=== PATIENT | male | born 1950 | race Asian ===

== ENCOUNTER 2021-04-07 11:34 | Inpatient (IN) | payer OTHER ==
[2021-04-07 12:44] LABS: BASO % 0.2 % (0-2.0); EOS % 2.8 % (0-4.5); HEMATOCRIT 34.1 % (35.4-49); HEMOGLOBIN 11.6 GM/dL (11.7-16.9); LYMPH % 20.2 % (8-40); MCH 31.7 pg (25.7-33.7); MCHC 34.1 g/dl (32.0-35.9); MEAN PLT VOLUME 10.6 fl (7.5-11.1); MONO % 8.3 % (3.8-10.2); NEUT % 68.5 % (42.8-82.8); PLATELET COUNT 179 10^3/uL (134-434); RBC 3.67 M/mm3 (4.00-5.60); RDW 14.4 % (11.9-15.9); WHITE BLOOD COUNT 8.1 K/mm3 (4.0-10.0)
[2021-04-07 12:54] LABS: CHLORIDE 98 mmol/L (98-107); SODIUM 136 mmol/L (136-145)
[2021-04-07 12:56] LABS: CALCIUM 8.5 mg/dL (8.5-10.1)
[2021-04-07 12:57] LABS: ALBUMIN 3.6 g/dl (3.4-5.0); ANION GAP 11 MMOL/L (8-16); BLOOD UREA NITROGEN 63.7 mg/dL (7-18); CO2 27 mmol/L (21-32); MAGNESIUM 2.1 mg/dL (1.8-2.4)
[2021-04-07 13:00] LABS: CREATININE 3.8 mg/dL (0.55-1.3); SGOT/AST 32 U/L (15-37); SGPT/ALT 45 U/L (13-61)
[2021-04-07 13:02] LABS: BILIRUBIN,TOTAL 0.7 mg/dL (0.2-1); TOT PROT 8.2 g/dl (6.4-8.2)
[2021-04-07 13:03] LABS: ALK PHOS 135 U/L (45-117)
[2021-04-07 13:27] LABS: GLUCOSE,RANDOM 423 mg/dL (74-106)
[2021-04-07] MEDS ORDERED: INSULIN REGULAR HUMAN 100 UNITS/ML *VIAL SQ ONE ×2 (13:31→16:04)
[2021-04-07] MEDS ORDERED: ALBUTEROL SO4 2.5/IPRATROPIUM 0.5 INH SOL 3 ML VIAL.NEB. NEB ONE ×2 (13:49→14:27)
[2021-04-07] MEDS ORDERED: MAGNESIUM SULF 50% (8.12 MEQ/2 ML-1 GM VIAL) IVPB ONE (13:50)
[2021-04-07] MEDS ORDERED: ALBUTEROL SO4 2.5/IPRATROPIUM 0.5 INH SOL 3 ML VIAL.NEB. NEB SCH (14:00)
[2021-04-07 14:08] LABS: N-TERMINAL BNP 24676.2 pg/ml (5-125)
[2021-04-07] MEDS ORDERED: MAGNESIUM SULFATE IN WATER 2 GM/50 ML IVPB IVPB ONE (14:27)
[2021-04-07] MEDS ORDERED: predniSONE 20 MG TABLET (UD) PO ONE (15:12)
[2021-04-07] MEDS ORDERED: ALBUTEROL SO4 0.5 % INH SOLN 2.5 MG/0.5 ML VIAL.NEB. NEB PRN (15:45)
[2021-04-07] MEDS ORDERED: predniSONE 20 MG TABLET (UD) ONE (15:50)
[2021-04-07] MEDS ORDERED: FUROSEMIDE 40 MG/4 ML INJECTABLE VIAL IVPUSH ONE (15:50)
[2021-04-07] MEDS ORDERED: FUROSEMIDE 40 MG/4 ML INJECTABLE VIAL ONE (16:16)
[2021-04-07] MEDS: DOXYCYCLINE HYCLATE 100 MG CAPSULE PO SCH (18:40)
[2021-04-07] MEDS: ALBUTEROL SO4 2.5/IPRATROPIUM 0.5 INH SOL 3 ML VIAL.NEB. NEB SCH (21:37)
[2021-04-07] MEDS: HEPARIN NA (PORCINE) 5,000 UNITS/ML 1ML VIAL SQ SCH (22:40)
[2021-04-08] MEDS: ALBUTEROL SO4 2.5/IPRATROPIUM 0.5 INH SOL 3 ML VIAL.NEB. NEB SCH ×4 (07:45→20:05)
[2021-04-08 09:28] LABS: BASO % 0.2 % (0-2.0); HEMATOCRIT 34.1 % (35.4-49); HEMOGLOBIN 11.6 GM/dL (11.7-16.9); LYMPH % 11.6 % (8-40); MCH 31.6 pg (25.7-33.7); MCHC 34.1 g/dl (32.0-35.9); MEAN CELL VOLUME 92.8 fl (80-96); MEAN PLT VOLUME 10.2 fl (7.5-11.1); MONO % 4.9 % (3.8-10.2); NEUT % 83.3 % (42.8-82.8); PLATELET COUNT 180 10^3/uL (134-434); RBC 3.67 M/mm3 (4.00-5.60); RDW 14.3 % (11.9-15.9); WHITE BLOOD COUNT 10.3 K/mm3 (4.0-10.0)
[2021-04-08] MEDS: DOXYCYCLINE HYCLATE 100 MG CAPSULE PO SCH ×2 (09:45→17:39)
[2021-04-08] MEDS: HEPARIN NA (PORCINE) 5,000 UNITS/ML 1ML VIAL SQ SCH ×2 (09:46→21:09)
[2021-04-08] MEDS: predniSONE 20 MG TABLET (UD) PO SCH (09:46)
[2021-04-08 10:14] LABS: BLOOD UREA NITROGEN 77.5 mg/dL (7-18); CALCIUM 9.1 mg/dL (8.5-10.1)
[2021-04-08 10:16] LABS: MAGNESIUM 3.1 mg/dL (1.8-2.4)
[2021-04-08 10:17] LABS: PHOSPHOROUS 5.4 mg/dL (2.5-4.9)
[2021-04-08 10:18] LABS: CREATININE 3.9 mg/dL (0.55-1.3)
[2021-04-08 11:33] VITALS: BMI 21.3
[2021-04-08] MEDS ORDERED: INSULIN (NOVOLOG) ASPART 100 UNITS/ML 10ML VIAL SQ ONE (15:30)
[2021-04-08] MEDS ORDERED: INSULIN (LEVEMIR) 100 UNITS/ML UNITS SQ ONE (19:00)
[2021-04-08] MEDS: TAMSULOSIN HCL 0.4 MG CAP PO SCH (19:43)
[2021-04-08] MEDS: RANOLAZINE E.R. 500 MG TABLET (FP) PO SCH (21:09)
[2021-04-08] MEDS: CARVEDILOL 25 MG TABLET (FP) PO SCH (21:09)
[2021-04-08] MEDS: BUDESONIDE/FORMETEROL FUMARATE 160/4.5 mcg INHALER IH SCH (21:09)
[2021-04-08] MEDS ORDERED: PATIENT'S OWN MEDICATION (NON-FORMULARY) (Tiotropium Bromide [Spiriva] 18 MCG Cap.W.Dev) IH SCH (22:00)
[2021-04-08] MEDS ORDERED: INSULIN (LEVEMIR) 100 UNITS/ML UNITS SQ SCH (22:00)
[2021-04-08] MEDS: INSULIN SLIDING SCALE (NOVOLOG) 1 VIAL SQ SCH (22:22)
[2021-04-08] MEDS: SACUBITRIL/VALSARTAN 24 MG-26 MG TABLET PO SCH (22:24)
[2021-04-09] MEDS: INSULIN SLIDING SCALE (NOVOLOG) 1 VIAL SQ SCH ×4 (06:25→22:45)
[2021-04-09] MEDS: ALBUTEROL SO4 2.5/IPRATROPIUM 0.5 INH SOL 3 ML VIAL.NEB. NEB SCH ×4 (07:30→20:16)
[2021-04-09] MEDS ORDERED: INSULIN (LEVEMIR) 100 UNITS/ML UNITS SQ SCH ×2 (07:30→17:55)
[2021-04-09] MEDS: TAMSULOSIN HCL 0.4 MG CAP PO SCH (08:45)
[2021-04-09 09:21] LABS: BASO % 0.2 % (0-2.0); EOS % 0.1 % (0-4.5); HEMATOCRIT 31.2 % (35.4-49); HEMOGLOBIN 10.6 GM/dL (11.7-16.9); LYMPH % 13.5 % (8-40); MCH 31.6 pg (25.7-33.7); MCHC 34.1 g/dl (32.0-35.9); MEAN CELL VOLUME 92.8 fl (80-96); MEAN PLT VOLUME 10.2 fl (7.5-11.1); MONO % 6.6 % (3.8-10.2); NEUT % 79.6 % (42.8-82.8); PLATELET COUNT 163 10^3/uL (134-434); RBC 3.36 M/mm3 (4.00-5.60); RDW 14.3 % (11.9-15.9); WHITE BLOOD COUNT 10.2 K/mm3 (4.0-10.0)
[2021-04-09 09:50] LABS: ALBUMIN 3.3 g/dl (3.4-5.0); BLOOD UREA NITROGEN 98.7 mg/dL (7-18); CALCIUM 8.7 mg/dL (8.5-10.1)
[2021-04-09 09:51] LABS: MAGNESIUM 2.8 mg/dL (1.8-2.4)
[2021-04-09 09:53] LABS: PHOSPHOROUS 4.8 mg/dL (2.5-4.9)
[2021-04-09 09:55] LABS: BILIRUBIN,TOTAL 0.5 mg/dL (0.2-1); TOT PROT 7.3 g/dl (6.4-8.2)
[2021-04-09] MEDS ORDERED: SACUBITRIL/VALSARTAN 24 MG-26 MG TABLET PO SCH (10:00)
[2021-04-09] MEDS: PANTOPRAZOLE 20 MG TABLET PO SCH (10:33)
[2021-04-09] MEDS: RANOLAZINE E.R. 500 MG TABLET (FP) PO SCH ×2 (10:33→22:44)
[2021-04-09] MEDS: ISOSORBIDE MONONITRATE 60 MG TAB.SR.24H (FP) PO SCH (10:33)
[2021-04-09] MEDS: DOXYCYCLINE HYCLATE 100 MG CAPSULE PO SCH (10:33)
[2021-04-09] MEDS: predniSONE 20 MG TABLET (UD) PO SCH (10:33)
[2021-04-09] MEDS: CLOPIDOGREL BISULFATE 75 MG TABLET (FP) PO SCH (10:34)
[2021-04-09] MEDS: SACUBITRIL/VALSARTAN 24 MG-26 MG TABLET PO SCH ×2 (10:34→22:45)
[2021-04-09] MEDS: HEPARIN NA (PORCINE) 5,000 UNITS/ML 1ML VIAL SQ SCH ×2 (10:34→22:45)
[2021-04-09] MEDS: TIOTROPIUM BROMIDE 2.5 MCG (SPIRIVA) RESPIMAT INHALER IH SCH (10:35)
[2021-04-09] MEDS: BUDESONIDE/FORMETEROL FUMARATE 160/4.5 mcg INHALER IH SCH ×2 (10:35→22:45)
[2021-04-09] MEDS: CARVEDILOL 25 MG TABLET (FP) PO SCH ×2 (10:36→22:45)
[2021-04-09] MEDS ORDERED: SODIUM CHLORIDE 250 ML IV PRN (13:48)
[2021-04-09] MEDS ORDERED: EPOETIN ALFA-EPBX 2,000 UNIT/ML VIAL IVPUSH ONE (14:00)
[2021-04-09] MEDS: methylPREDNISolone NA SUCC 40 MG/1 ML VIAL IVPUSH SCH ×2 (17:20→17:49)
[2021-04-09] MEDS ORDERED: PT OWN MED DRAWER 7, Y5N ONE (22:20)
[2021-04-09] MEDS: ATORVASTATIN CA 80 MG TABLET (FP) PO SCH (22:45)
[2021-04-10] MEDS: methylPREDNISolone NA SUCC 40 MG/1 ML VIAL IVPUSH SCH ×3 (01:23→17:15)
[2021-04-10] MEDS: INSULIN SLIDING SCALE (NOVOLOG) 1 VIAL SQ SCH ×4 (06:37→22:37)
[2021-04-10] MEDS ORDERED: PT OWN MED DRAWER 7, Y5N ONE (08:50)
[2021-04-10] MEDS: ALBUTEROL SO4 2.5/IPRATROPIUM 0.5 INH SOL 3 ML VIAL.NEB. NEB SCH ×3 (08:50→15:20)
[2021-04-10 09:07] LABS: HEMOGLOBIN 10.9 GM/dL (11.7-16.9); MCH 31.5 pg (25.7-33.7); MEAN CELL VOLUME 92.8 fl (80-96); MEAN PLT VOLUME 10.1 fl (7.5-11.1); PLATELET COUNT 152 10^3/uL (134-434); RBC 3.45 M/mm3 (4.00-5.60); RDW 14.5 % (11.9-15.9); WHITE BLOOD COUNT 7.8 K/mm3 (4.0-10.0)
[2021-04-10] MEDS: TAMSULOSIN HCL 0.4 MG CAP PO SCH (09:30)
[2021-04-10] MEDS: SACUBITRIL/VALSARTAN 24 MG-26 MG TABLET PO SCH ×3 (09:30→22:44)
[2021-04-10] MEDS: PANTOPRAZOLE 20 MG TABLET PO SCH (09:31)
[2021-04-10] MEDS: CLOPIDOGREL BISULFATE 75 MG TABLET (FP) PO SCH (09:31)
[2021-04-10] MEDS: RANOLAZINE E.R. 500 MG TABLET (FP) PO SCH ×2 (09:31→22:37)
[2021-04-10] MEDS: HEPARIN NA (PORCINE) 5,000 UNITS/ML 1ML VIAL SQ SCH ×2 (09:39→22:37)
[2021-04-10] MEDS: TIOTROPIUM BROMIDE 2.5 MCG (SPIRIVA) RESPIMAT INHALER IH SCH (09:40)
[2021-04-10] MEDS: BUDESONIDE/FORMETEROL FUMARATE 160/4.5 mcg INHALER IH SCH ×2 (09:41→22:40)
[2021-04-10 11:19] LABS: ALBUMIN 2.9 g/dl (3.4-5.0); BILIRUBIN,TOTAL 0.5 mg/dL (0.2-1); BLOOD UREA NITROGEN 47.7 mg/dL (7-18); CALCIUM 7.9 mg/dL (8.5-10.1); CREATININE 2.7 mg/dL (0.55-1.3); PHOSPHOROUS 3.6 mg/dL (2.5-4.9); TOT PROT 6.5 g/dl (6.4-8.2)
[2021-04-10] MEDS: ISOSORBIDE MONONITRATE 60 MG TAB.SR.24H (FP) PO SCH (11:36)
[2021-04-10] MEDS: CARVEDILOL 25 MG TABLET (FP) PO SCH (11:36)
[2021-04-10] MEDS ORDERED: CARVEDILOL 25 MG TABLET (FP) PO SCH (15:10)
[2021-04-10] MEDS ORDERED: ISOSORBIDE MONONITRATE 60 MG TAB.SR.24H (FP) PO SCH (17:27)
[2021-04-10] MEDS: ATORVASTATIN CA 80 MG TABLET (FP) PO SCH (22:37)
[2021-04-11] MEDS: methylPREDNISolone NA SUCC 40 MG/1 ML VIAL IVPUSH SCH ×3 (01:50→18:00)
[2021-04-11] MEDS: INSULIN SLIDING SCALE (NOVOLOG) 1 VIAL SQ SCH ×3 (06:53→18:01)
[2021-04-11] MEDS ORDERED: INSULIN (LEVEMIR) 100 UNITS/ML UNITS SQ SCH (07:00)
[2021-04-11] MEDS: ALBUTEROL SO4 2.5/IPRATROPIUM 0.5 INH SOL 3 ML VIAL.NEB. NEB SCH ×3 (07:35→15:40)
[2021-04-11] MEDS: TAMSULOSIN HCL 0.4 MG CAP PO SCH (09:15)
[2021-04-11 09:53] LABS: BASO % 0.4 % (0-2.0); HEMOGLOBIN 10.8 GM/dL (11.7-16.9); LYMPH % 5.6 % (8-40); MCH 31.3 pg (25.7-33.7); MCHC 33.7 g/dl (32.0-35.9); MEAN PLT VOLUME 9.9 fl (7.5-11.1); MONO % 3.8 % (3.8-10.2); NEUT % 90.2 % (42.8-82.8); PLATELET COUNT 155 10^3/uL (134-434); RBC 3.44 M/mm3 (4.00-5.60); RDW 14.8 % (11.9-15.9); WHITE BLOOD COUNT 10.5 K/mm3 (4.0-10.0)
[2021-04-11] MEDS ORDERED: CARVEDILOL 6.25 MG TABLET (FP) PO SCH (09:55)
[2021-04-11 10:24] LABS: ALBUMIN 3.1 g/dl (3.4-5.0); CALCIUM 8.4 mg/dL (8.5-10.1); MAGNESIUM 2.4 mg/dL (1.8-2.4)
[2021-04-11 10:27] LABS: CREATININE 3.7 mg/dL (0.55-1.3)
[2021-04-11 10:28] LABS: BILIRUBIN,TOTAL 0.5 mg/dL (0.2-1)
[2021-04-11 10:29] LABS: TOT PROT 6.8 g/dl (6.4-8.2)
[2021-04-11 10:30] LABS: PHOSPHOROUS 4.4 mg/dL (2.5-4.9)
[2021-04-11] MEDS: SACUBITRIL/VALSARTAN 24 MG-26 MG TABLET PO SCH (10:30)
[2021-04-11 10:38] LABS: BLOOD UREA NITROGEN 77.4 mg/dL (7-18)
[2021-04-11] MEDS ORDERED: INSULIN SLIDING SCALE (NOVOLOG) 1 VIAL SQ ONE (10:39)
[2021-04-11] MEDS: RANOLAZINE E.R. 500 MG TABLET (FP) PO SCH (10:42)
[2021-04-11] MEDS: HEPARIN NA (PORCINE) 5,000 UNITS/ML 1ML VIAL SQ SCH (10:42)
[2021-04-11] MEDS: PANTOPRAZOLE 20 MG TABLET PO SCH (10:42)
[2021-04-11] MEDS: CLOPIDOGREL BISULFATE 75 MG TABLET (FP) PO SCH (10:43)
[2021-04-11] MEDS: TIOTROPIUM BROMIDE 2.5 MCG (SPIRIVA) RESPIMAT INHALER IH SCH (10:47)
[2021-04-11] MEDS: BUDESONIDE/FORMETEROL FUMARATE 160/4.5 mcg INHALER IH SCH (10:47)
[2021-04-11] MEDS ORDERED: EPOETIN ALFA-EPBX 2,000 UNIT/ML VIAL IVPUSH ONE (16:00)
[2021-04-11 17:59] VITALS: BP 135/59; PULSE 76; TEMP 97.8
== END 2021-04-11 19:06 | disposition home or self-care (01) | DRG 190 ==
LOC: JER 11:34 → INTOOBSV 15:11 → JERBED 15:11 → OBSVTOIN 15:11 → J5S 15:52
PROVIDERS: ADMIT Internal Medicine; ATTEND Internal Medicine
PROC: 5A1D70Z Performance of Urinary Filtration, Intermittent, Less than 6 Hours Per Day (ICD-10-PCS; principal; 2021-04-11)
DX: J44.1 Chronic obstructive pulmonary disease with (acute) exacerbation (principal); N18.6 End stage renal disease; J45.901 Unspecified asthma with (acute) exacerbation; I13.2 Hypertensive heart and chronic kidney disease with heart failure and with stage 5 chronic kidney disease, or end stage renal disease; E11.65 Type 2 diabetes mellitus with hyperglycemia; E87.70 Fluid overload, unspecified; E78.5 Hyperlipidemia, unspecified; I50.9 Heart failure, unspecified; I25.10 Atherosclerotic heart disease of native coronary artery without angina pectoris; Z99.2 Dependence on renal dialysis
CPT/HCPCS: 36415; 71045-TC-FY; 80048; 80053; 82010; 82550; 82553; 82962; 83036; 83735; 83880; 84100; 84484; 85025; 85027; 86803; 87340; 87804; 93005; 93010; 94640; 94660; 94761; 99285-25; C9803; J1644; Q5106; U0003; U0005

== ENCOUNTER 2021-04-15 22:44 | Emergency (ER) | payer OTHER ==
[2021-04-15 22:57] VITALS: TEMP 97.6; BMI 25.7
[2021-04-16] MEDS ORDERED: DEXAMETHASONE LIQUID 0.5 MG/5 ML PO ONE (00:56)
[2021-04-16] MEDS ORDERED: ALBUTEROL SO4 2.5/IPRATROPIUM 0.5 INH SOL 3 ML VIAL.NEB. NEB ONE ×3 (00:56→01:44)
[2021-04-16] MEDS ORDERED: DEXAMETHASONE SOD PHOSPHATE 10 MG/1 ML VIAL ONE (01:44)
[2021-04-16] MEDS ORDERED: AZITHROMYCIN 250 MG TABLET PO ONE (02:30)
[2021-04-16 03:00] VITALS: BP 128/74; PULSE 80
== END 2021-04-16 03:01 | disposition home or self-care (01) ==
LOC: JER 22:44
PROC: 3E0F7GC Introduction of Other Therapeutic Substance into Respiratory Tract, Via Natural or Artificial Opening (ICD-10-PCS; principal; 2021-04-15)
DX: J44.1 Chronic obstructive pulmonary disease with (acute) exacerbation (principal)
CPT/HCPCS: 94640; 99283-25

== ENCOUNTER 2021-06-11 08:32 | Inpatient (IN) | payer OTHER ==
[2021-06-11 08:39] VITALS: BMI 21.9
[2021-06-11 10:49] LABS: BASO % 0.4 % (0-2.0); EOS % 0.2 % (0-4.5); HEMATOCRIT 35.7 % (35.4-49); LYMPH % 9.7 % (8-40); MCH 32.4 pg (25.7-33.7); MCHC 33.6 g/dl (32.0-35.9); MEAN CELL VOLUME 96.5 fl (80-96); MEAN PLT VOLUME 9.5 fl (7.5-11.1); MONO % 8.1 % (3.8-10.2); NEUT % 81.6 % (42.8-82.8); PLATELET COUNT 173 10^3/uL (134-434); RDW 17.5 % (11.9-15.9); WHITE BLOOD COUNT 10.1 K/mm3 (4.0-10.0)
[2021-06-11 10:58] LABS: MAGNESIUM 2.2 mg/dL (1.8-2.4)
[2021-06-11] MEDS: ALBUTEROL SO4 2.5/IPRATROPIUM 0.5 INH SOL 3 ML VIAL.NEB. NEB SCH ×6 (11:00→21:42)
[2021-06-11 11:02] LABS: ALBUMIN 3.1 g/dl (3.4-5.0); CALCIUM 9.3 mg/dL (8.5-10.1); PHOSPHOROUS 4.6 mg/dL (2.5-4.9)
[2021-06-11 11:05] LABS: CREATININE 5.7 mg/dL (0.55-1.3)
[2021-06-11 11:07] LABS: BILIRUBIN,TOTAL 0.8 mg/dL (0.2-1); TOT PROT 7.4 g/dl (6.4-8.2)
[2021-06-11 11:20] LABS: N-TERMINAL BNP 64607.8 pg/ml (5-125)
[2021-06-11 12:46] LABS: EPI CELLS 2 /uL (0-25.1); HYALINE CASTS 0 /uL (0-3.1); PH,URINE 6.5 (5.0-8.0); URINE APPEARANCE CLEAR; URINE BACTERIA 60 /uL (0-1359); URINE BILIRUBIN NEGATIVE (NEGATIVE); URINE COLOR YELLOW; URINE GLUCOSE (UA) 3+ (NEGATIVE); URINE KETONE NEGATIVE (NEGATIVE); URINE LEUK ESTERASE NEGATIVE (NEGATIVE); URINE NITRITE NEGATIVE (NEGATIVE); URINE PROTEIN 2+ (NEGATIVE); URINE RBC 6 /uL (0-23.9); URINE WBC 2 /uL (0-25.8)
[2021-06-11] MEDS ORDERED: TIOTROPIUM BROMIDE 2.5 MCG (SPIRIVA) RESPIMAT INHALER IH SCH (14:00)
[2021-06-11] MEDS ORDERED: ALBUTEROL SO4 2.5/IPRATROPIUM 0.5 INH SOL 3 ML VIAL.NEB. NEB ONE ×2 (14:43→21:38)
[2021-06-11] MEDS ORDERED: ALBUTEROL SO4 2.5/IPRATROPIUM 0.5 INH SOL 3 ML VIAL.NEB. NEB PRN (15:35)
[2021-06-11] MEDS ORDERED: DOXYCYCLINE INJECTION 100 MG in DEXTROSE 5%-WATER 100 ML IVPB SCH (15:45)
[2021-06-11] MEDS ORDERED: CEFTRIAXONE 1 GM in DEXTROSE 5%-WATER - 50 ML IVPB SCH (15:45)
[2021-06-11] MEDS ORDERED: CEFTRIAXONE 1 GM/50 ML BAG ONE (15:47)
[2021-06-11] MEDS ORDERED: DOXYCYCLINE HYCLATE 100 MG VIAL ONE ×2 (16:04→22:53)
[2021-06-11] MEDS: INSULIN SLIDING SCALE (NOVOLOG) 1 VIAL SQ SCH ×2 (16:53→23:10)
[2021-06-11] MEDS ORDERED: DEXAMETHASONE SOD PHOSPHATE 10 MG/1 ML VIAL ONE (21:38)
[2021-06-11] MEDS: DEXAMETHASONE SOD PHOSPHATE 10 MG/1 ML VIAL IVPUSH SCH (21:42)
[2021-06-11] MEDS ORDERED: HEPARIN NA (PORCINE) 5,000 UNITS/ML 1ML VIAL SQ SCH (22:00)
[2021-06-11] MEDS ORDERED: DEXTROSE 5%-WATER 100 ML IVPB ONE (22:53)
[2021-06-11] MEDS: CARVEDILOL 6.25 MG TABLET (FP) PO SCH (23:09)
[2021-06-11] MEDS: HEPARIN NA (PORCINE) 5,000 UNITS/ML 1ML VIAL SQ SCH (23:09)
[2021-06-11] MEDS: RANOLAZINE E.R. 500 MG TABLET (FP) PO SCH (23:09)
[2021-06-11] MEDS: SACUBITRIL/VALSARTAN 24 MG-26 MG TABLET PO SCH (23:09)
[2021-06-11] MEDS: INSULIN (LEVEMIR) 100 UNITS/ML UNITS SQ SCH (23:10)
[2021-06-11] MEDS: ZINC SULFATE 220 MG CAPSULE (FP) PO SCH (23:11)
[2021-06-11] MEDS: DOXYCYCLINE INJECTION 100 MG in DEXTROSE 5%-WATER 100 ML IVPB SCH (23:11)
[2021-06-11] MEDS: BUDESONIDE/FORMETEROL FUMARATE 160/4.5 mcg INHALER IH SCH (23:28)
[2021-06-12] MEDS: HEPARIN NA (PORCINE) 5,000 UNITS/ML 1ML VIAL SQ SCH ×3 (05:39→21:01)
[2021-06-12] MEDS: INSULIN SLIDING SCALE (NOVOLOG) 1 VIAL SQ SCH ×4 (06:27→21:02)
[2021-06-12 07:45] LABS: BASO % 0.2 % (0-2.0); HEMATOCRIT 33.5 % (35.4-49); HEMOGLOBIN 11.3 GM/dL (11.7-16.9); LYMPH % 10.4 % (8-40); MCH 32.2 pg (25.7-33.7); MCHC 33.7 g/dl (32.0-35.9); MEAN CELL VOLUME 95.6 fl (80-96); MEAN PLT VOLUME 9.5 fl (7.5-11.1); MONO % 5.6 % (3.8-10.2); NEUT % 83.8 % (42.8-82.8); PLATELET COUNT 159 10^3/uL (134-434); RDW 17.3 % (11.9-15.9); WHITE BLOOD COUNT 6.1 K/mm3 (4.0-10.0)
[2021-06-12 08:03] LABS: CALCIUM 8.5 mg/dL (8.5-10.1)
[2021-06-12 08:04] LABS: ALBUMIN 2.7 g/dl (3.4-5.0)
[2021-06-12 08:06] LABS: BILIRUBIN,TOTAL 0.7 mg/dL (0.2-1); TOT PROT 6.7 g/dl (6.4-8.2)
[2021-06-12 08:07] LABS: CREATININE 3.5 mg/dL (0.55-1.3)
[2021-06-12] MEDS ORDERED: DOXYCYCLINE HYCLATE 100 MG VIAL ONE ×3 (09:07→20:36)
[2021-06-12] MEDS ORDERED: DEXTROSE 5%-WATER 100 ML IVPB ONE ×3 (09:08→20:36)
[2021-06-12] MEDS ORDERED: cefTRIAXone SODIUM 1 GM VIAL ONE (09:10)
[2021-06-12] MEDS ORDERED: PT OWN MED DRAWER 7, Y5N ONE (09:10)
[2021-06-12] MEDS ORDERED: DEXTROSE 5%-WATER - 50 ML IVPB ONE (09:11)
[2021-06-12] MEDS: ZINC SULFATE 220 MG CAPSULE (FP) PO SCH ×2 (09:23→21:01)
[2021-06-12] MEDS: TAMSULOSIN HCL 0.4 MG CAP PO SCH (09:23)
[2021-06-12] MEDS: ISOSORBIDE MONONITRATE 60 MG TAB.SR.24H (FP) PO SCH (09:23)
[2021-06-12] MEDS: PANTOPRAZOLE 20 MG TABLET PO SCH (09:23)
[2021-06-12] MEDS: RANOLAZINE E.R. 500 MG TABLET (FP) PO SCH ×2 (09:23→21:01)
[2021-06-12] MEDS: CARVEDILOL 6.25 MG TABLET (FP) PO SCH ×2 (09:23→21:01)
[2021-06-12] MEDS: CHOLECALCIFEROL (VIT D3) 1,000 UNIT (25 MCG) TABLET PO SCH (09:23)
[2021-06-12] MEDS: SACUBITRIL/VALSARTAN 24 MG-26 MG TABLET PO SCH ×2 (09:23→21:01)
[2021-06-12] MEDS: ASCORBIC ACID 500 MG TABLET (FP) PO SCH (09:24)
[2021-06-12] MEDS: DEXAMETHASONE SOD PHOSPHATE 10 MG/1 ML VIAL IVPUSH SCH (09:24)
[2021-06-12] MEDS: CEFTRIAXONE 1 GM in DEXTROSE 5%-WATER - 50 ML IVPB SCH (09:25)
[2021-06-12] MEDS: CLOPIDOGREL BISULFATE 75 MG TABLET (FP) PO SCH (09:26)
[2021-06-12] MEDS: DOXYCYCLINE INJECTION 100 MG in DEXTROSE 5%-WATER 100 ML IVPB SCH ×2 (09:33→21:01)
[2021-06-12] MEDS: BUDESONIDE/FORMETEROL FUMARATE 160/4.5 mcg INHALER IH SCH ×2 (09:55→21:01)
[2021-06-12] MEDS ORDERED: NICOTINE 14 MG/24 HOURS TOPICAL PATCH TD SCH (10:00)
[2021-06-12] MEDS ORDERED: SACUBITRIL/VALSARTAN 24 MG-26 MG TABLET PO SCH (10:00)
[2021-06-12] MEDS ORDERED: SODIUM CHLORIDE 250 ML IV PRN (10:04)
[2021-06-12] MEDS: ALBUTEROL SO4 2.5/IPRATROPIUM 0.5 INH SOL 3 ML VIAL.NEB. NEB SCH (12:21)
[2021-06-12] MEDS: ATORVASTATIN CA 80 MG TABLET (FP) PO SCH (21:01)
[2021-06-12] MEDS: INSULIN (LEVEMIR) 100 UNITS/ML UNITS SQ SCH (21:02)
[2021-06-13] MEDS: HEPARIN NA (PORCINE) 5,000 UNITS/ML 1ML VIAL SQ SCH ×3 (06:29→21:25)
[2021-06-13] MEDS: INSULIN SLIDING SCALE (NOVOLOG) 1 VIAL SQ SCH ×4 (06:29→21:26)
[2021-06-13 06:41] LABS: BASO % 0.3 % (0-2.0); EOS % 0.1 % (0-4.5); HEMATOCRIT 31.3 % (35.4-49); HEMOGLOBIN 10.6 GM/dL (11.7-16.9); LYMPH % 13.2 % (8-40); MCH 32.4 pg (25.7-33.7); MEAN CELL VOLUME 95.3 fl (80-96); MEAN PLT VOLUME 9.3 fl (7.5-11.1); MONO % 7.9 % (3.8-10.2); NEUT % 78.5 % (42.8-82.8); PLATELET COUNT 160 10^3/uL (134-434); RBC 3.28 M/mm3 (4.00-5.60); RDW 17.4 % (11.9-15.9); WHITE BLOOD COUNT 7.7 K/mm3 (4.0-10.0)
[2021-06-13] MEDS ORDERED: POTASSIUM CHLORIDE TABS 20 MEQ TABLET.ER (FP) PO ONE (07:01)
[2021-06-13 07:03] LABS: CALCIUM 7.9 mg/dL (8.5-10.1)
[2021-06-13 07:04] LABS: ALBUMIN 2.2 g/dl (3.4-5.0); BLOOD UREA NITROGEN 56.9 mg/dL (7-18); MAGNESIUM 1.9 mg/dL (1.8-2.4)
[2021-06-13 07:07] LABS: CREATININE 4.2 mg/dL (0.55-1.3); PHOSPHOROUS 4.1 mg/dL (2.5-4.9)
[2021-06-13 07:08] LABS: BILIRUBIN,TOTAL 0.5 mg/dL (0.2-1); TOT PROT 5.7 g/dl (6.4-8.2)
[2021-06-13] MEDS ORDERED: DOXYCYCLINE HYCLATE 100 MG VIAL ONE (09:24)
[2021-06-13] MEDS ORDERED: DEXTROSE 5%-WATER 100 ML IVPB ONE (09:24)
[2021-06-13] MEDS ORDERED: DEXTROSE 5%-WATER - 50 ML IVPB ONE (09:26)
[2021-06-13] MEDS ORDERED: cefTRIAXone SODIUM 1 GM VIAL ONE (09:26)
[2021-06-13] MEDS: BUDESONIDE/FORMETEROL FUMARATE 160/4.5 mcg INHALER IH SCH ×2 (10:33→21:27)
[2021-06-13] MEDS: ZINC SULFATE 220 MG CAPSULE (FP) PO SCH ×2 (10:55→21:24)
[2021-06-13] MEDS: ISOSORBIDE MONONITRATE 60 MG TAB.SR.24H (FP) PO SCH (10:55)
[2021-06-13] MEDS: TAMSULOSIN HCL 0.4 MG CAP PO SCH (10:55)
[2021-06-13] MEDS: CHOLECALCIFEROL (VIT D3) 1,000 UNIT (25 MCG) TABLET PO SCH (10:56)
[2021-06-13] MEDS: CEFTRIAXONE 1 GM in DEXTROSE 5%-WATER - 50 ML IVPB SCH (10:56)
[2021-06-13] MEDS: RANOLAZINE E.R. 500 MG TABLET (FP) PO SCH ×2 (10:56→21:24)
[2021-06-13] MEDS: PANTOPRAZOLE 20 MG TABLET PO SCH (10:56)
[2021-06-13] MEDS: CARVEDILOL 6.25 MG TABLET (FP) PO SCH ×2 (10:56→21:24)
[2021-06-13] MEDS: DEXAMETHASONE SOD PHOSPHATE 10 MG/1 ML VIAL IVPUSH SCH (10:56)
[2021-06-13] MEDS: CLOPIDOGREL BISULFATE 75 MG TABLET (FP) PO SCH (10:56)
[2021-06-13] MEDS: ASCORBIC ACID 500 MG TABLET (FP) PO SCH (10:56)
[2021-06-13] MEDS: DOXYCYCLINE INJECTION 100 MG in DEXTROSE 5%-WATER 100 ML IVPB SCH (10:57)
[2021-06-13] MEDS: SACUBITRIL/VALSARTAN 24 MG-26 MG TABLET PO SCH ×2 (11:27→21:24)
[2021-06-13] MEDS: ATORVASTATIN CA 80 MG TABLET (FP) PO SCH (21:25)
[2021-06-13] MEDS: INSULIN (LEVEMIR) 100 UNITS/ML UNITS SQ SCH (21:25)
[2021-06-14] MEDS: HEPARIN NA (PORCINE) 5,000 UNITS/ML 1ML VIAL SQ SCH ×2 (06:05→14:50)
[2021-06-14] MEDS: INSULIN SLIDING SCALE (NOVOLOG) 1 VIAL SQ SCH ×2 (06:16→11:54)
[2021-06-14 08:02] LABS: HEMATOCRIT 34.2 % (35.4-49); HEMOGLOBIN 11.6 GM/dL (11.7-16.9); MCH 32.5 pg (25.7-33.7); MCHC 33.8 g/dl (32.0-35.9); MEAN CELL VOLUME 96.2 fl (80-96); MEAN PLT VOLUME 9.6 fl (7.5-11.1); PLATELET COUNT 174 10^3/uL (134-434); RBC 3.56 M/mm3 (4.00-5.60); RDW 17.4 % (11.9-15.9); WHITE BLOOD COUNT 7.6 K/mm3 (4.0-10.0)
[2021-06-14 08:31] LABS: ALBUMIN 2.3 g/dl (3.4-5.0); BLOOD UREA NITROGEN 36.6 mg/dL (7-18); CALCIUM 8.2 mg/dL (8.5-10.1); MAGNESIUM 1.9 mg/dL (1.8-2.4)
[2021-06-14 08:34] LABS: CREATININE 3.2 mg/dL (0.55-1.3); PHOSPHOROUS 3.3 mg/dL (2.5-4.9)
[2021-06-14 08:36] LABS: BILIRUBIN,TOTAL 0.4 mg/dL (0.2-1); TOT PROT 5.8 g/dl (6.4-8.2)
[2021-06-14] MEDS ORDERED: cefTRIAXone SODIUM 1 GM VIAL ONE (09:45)
[2021-06-14] MEDS ORDERED: DEXTROSE 5%-WATER - 50 ML IVPB ONE (09:45)
[2021-06-14] MEDS: CEFTRIAXONE 1 GM in DEXTROSE 5%-WATER - 50 ML IVPB SCH (09:52)
[2021-06-14] MEDS: TAMSULOSIN HCL 0.4 MG CAP PO SCH (09:52)
[2021-06-14] MEDS: RANOLAZINE E.R. 500 MG TABLET (FP) PO SCH (09:52)
[2021-06-14] MEDS: CLOPIDOGREL BISULFATE 75 MG TABLET (FP) PO SCH (09:53)
[2021-06-14] MEDS: SACUBITRIL/VALSARTAN 24 MG-26 MG TABLET PO SCH (09:53)
[2021-06-14] MEDS: ISOSORBIDE MONONITRATE 60 MG TAB.SR.24H (FP) PO SCH (09:53)
[2021-06-14] MEDS: CHOLECALCIFEROL (VIT D3) 1,000 UNIT (25 MCG) TABLET PO SCH (09:53)
[2021-06-14] MEDS: PANTOPRAZOLE 20 MG TABLET PO SCH (09:53)
[2021-06-14] MEDS: ZINC SULFATE 220 MG CAPSULE (FP) PO SCH (09:53)
[2021-06-14] MEDS: ASCORBIC ACID 500 MG TABLET (FP) PO SCH (09:54)
[2021-06-14] MEDS: CARVEDILOL 6.25 MG TABLET (FP) PO SCH (09:58)
[2021-06-14] MEDS: BUDESONIDE/FORMETEROL FUMARATE 160/4.5 mcg INHALER IH SCH (10:12)
[2021-06-14 14:06] VITALS: BP 92/51; PULSE 67; TEMP 97.9
== END 2021-06-14 17:01 | disposition home or self-care (01) | DRG 177 ==
LOC: JER 08:32 → JERBED 12:06 → J4S 22:40
PROVIDERS: ADMIT Internal Medicine; ATTEND Internal Medicine
PROC: 5A1D70Z Performance of Urinary Filtration, Intermittent, Less than 6 Hours Per Day (ICD-10-PCS; principal; 2021-06-11)
PROC: 5A1D70Z Performance of Urinary Filtration, Intermittent, Less than 6 Hours Per Day (ICD-10-PCS; 2021-06-13)
DX: U07.1 COVID-19 (principal); J12.82 Pneumonia due to coronavirus disease 2019; N18.6 End stage renal disease; I50.23 Acute on chronic systolic (congestive) heart failure; I13.2 Hypertensive heart and chronic kidney disease with heart failure and with stage 5 chronic kidney disease, or end stage renal disease; J44.1 Chronic obstructive pulmonary disease with (acute) exacerbation; R50.9 Fever, unspecified; J44.9 Chronic obstructive pulmonary disease, unspecified; I25.10 Atherosclerotic heart disease of native coronary artery without angina pectoris; E11.22 Type 2 diabetes mellitus with diabetic chronic kidney disease; M54.9 Dorsalgia, unspecified; R09.02 Hypoxemia; Z99.2 Dependence on renal dialysis; Z95.1 Presence of aortocoronary bypass graft; Z85.46 Personal history of malignant neoplasm of prostate
CPT/HCPCS: 36415; 71045-TC-FY; 76604; 80053; 81003; 82550; 82553; 82728; 82962; 83036; 83605; 83735; 83880; 84100; 84132; 84436; 84443; 84484; 85025; 85027; 85379; 86140; 86803; 87086; 87340; 87899; 93005; 93010; 93306-TC; 93308; 94761; 99285-25; C9803; J1100; J1644; U0003; U0005

== ENCOUNTER 2021-08-03 05:16 | Inpatient (IN) | payer OTHER ==
[2021-08-03 05:30] VITALS: BMI 17.8
[2021-08-03] MEDS ORDERED: ACETAMINOPHEN 1000 MG/100 ML VIAL IVPB ONE (06:26)
[2021-08-03] MEDS ORDERED: ASPIRIN 81 MG CHEWABLE TABLETS PO ONE (06:26)
[2021-08-03] MEDS ORDERED: ASPIRIN 81 MG CHEWABLE TABLETS ONE (06:38)
[2021-08-03] MEDS ORDERED: ACETAMINOPHEN INJECTION 100 ML IVPB ONE (06:38)
[2021-08-03 07:41] LABS: HEMATOCRIT 38.8 % (35.4-49); HEMOGLOBIN 13.1 GM/dL (11.7-16.9); MCH 31.7 pg (25.7-33.7); MCHC 33.7 g/dl (32.0-35.9); PLATELET COUNT 353 10^3/uL (134-434); RBC 4.12 M/mm3 (4.00-5.60); RDW 16.1 % (11.9-15.9)
[2021-08-03 07:56] LABS: INR 1.04 (0.83-1.09); PROTHROMBIN TIME (PATIENT) 11.7 SEC (9.7-13.0)
[2021-08-03] MEDS ORDERED: morphine CARPU-JECT 4 MG/1 ML DISP.SYRIN IVPUSH ONE (08:32)
[2021-08-03 09:02] LABS: ALBUMIN 2.9 g/dl (3.4-5.0); ALK PHOS 143 U/L (45-117); ANION GAP 15 MMOL/L (8-16); BILIRUBIN,TOTAL 0.7 mg/dL (0.2-1); BLOOD UREA NITROGEN 61.7 mg/dL (7-18); CALCIUM 8.3 mg/dL (8.5-10.1); CHLORIDE 94 mmol/L (98-107); CO2 27 mmol/L (21-32); GLUCOSE,RANDOM 483 mg/dL (74-106); SGOT/AST 32 U/L (15-37); SGPT/ALT 31 U/L (13-61); SODIUM 135 mmol/L (136-145); TOT PROT 8.1 g/dl (6.4-8.2)
[2021-08-03] MEDS ORDERED: morphine SULFATE 4 MG/ML VIAL ONE (09:06)
[2021-08-03 09:21] LABS: N-TERMINAL BNP 30498.2 pg/ml (5-125)
[2021-08-03] MEDS ORDERED: INSULIN REGULAR HUMAN 100 UNITS/ML *VIAL SQ ONE ×2 (09:25→11:40)
[2021-08-03] MEDS ORDERED: SODIUM CHLORIDE 250 ML IV PRN (11:39)
[2021-08-03 12:13] LABS: VENOUS BASE EXCESS 1.6 mmol/L (-2-2); VENOUS O2 SATURATION 88.9 % (70-80); VENOUS PCO2 44.9 mmHg (38-52); VENOUS PH 7.395 (7.310-7.410)
[2021-08-03] MEDS ORDERED: ALBUTEROL SO4 HFA INHALER IH PRN (13:45)
[2021-08-03] MEDS ORDERED: DEXTROSE 50%-WATER - 25 GM/50 ML VIAL IVPUSH ONE (16:13)
[2021-08-03] MEDS: HEPARIN NA (PORCINE) 5,000 UNITS/ML 1ML VIAL SQ SCH ×2 (16:17→23:10)
[2021-08-03] MEDS: INSULIN SLIDING SCALE (NOVOLOG) 1 VIAL SQ SCH ×2 (16:49→23:24)
[2021-08-03] MEDS ORDERED: CARVEDILOL 25 MG TABLET (FP) PO SCH (22:00)
[2021-08-03] MEDS ORDERED: INSULIN (LEVEMIR) 100 UNITS/ML UNITS SQ SCH (22:00)
[2021-08-03] MEDS: CARVEDILOL 25 MG TABLET (FP) PO SCH (23:09)
[2021-08-03] MEDS: ATORVASTATIN CA 80 MG TABLET (FP) PO SCH (23:10)
[2021-08-03] MEDS: RANOLAZINE E.R. 500 MG TABLET (FP) PO SCH (23:11)
[2021-08-03] MEDS: INSULIN (LEVEMIR) 100 UNITS/ML UNITS SQ SCH (23:23)
[2021-08-04] MEDS: BUDESONIDE/FORMETEROL FUMARATE 160/4.5 mcg INHALER IH SCH ×3 (00:14→22:12)
[2021-08-04] MEDS: SACUBITRIL/VALSARTAN 24 MG-26 MG TABLET PO SCH ×3 (00:14→21:52)
[2021-08-04] MEDS: HEPARIN NA (PORCINE) 5,000 UNITS/ML 1ML VIAL SQ SCH ×2 (05:34→14:08)
[2021-08-04] MEDS: INSULIN SLIDING SCALE (NOVOLOG) 1 VIAL SQ SCH ×4 (06:10→21:38)
[2021-08-04 07:33] LABS: HEMATOCRIT 39.2 % (35.4-49); HEMOGLOBIN 13.1 GM/dL (11.7-16.9); MCH 31.2 pg (25.7-33.7); MCHC 33.4 g/dl (32.0-35.9); MEAN CELL VOLUME 93.4 fl (80-96); MEAN PLT VOLUME 8.3 fl (7.5-11.1); PLATELET COUNT 314 10^3/uL (134-434); WHITE BLOOD COUNT 12.3 K/mm3 (4.0-10.0)
[2021-08-04 07:58] LABS: ANION GAP 7 MMOL/L (8-16); CALCIUM 8.4 mg/dL (8.5-10.1); CHLORIDE 103 mmol/L (98-107); CO2 35 mmol/L (21-32); CREATININE 3.3 mg/dL (0.55-1.3); GLUCOSE,RANDOM 69 mg/dL (74-106); MAGNESIUM 2.1 mg/dL (1.8-2.4); PHOSPHOROUS 3.4 mg/dL (2.5-4.9); SODIUM 144 mmol/L (136-145)
[2021-08-04] MEDS ORDERED: TAMSULOSIN HCL 0.4 MG CAP PO SCH (08:30)
[2021-08-04] MEDS ORDERED: PT OWN MED DRAWER 7, Y5N ONE ×2 (08:43→21:23)
[2021-08-04] MEDS ORDERED: CLOPIDOGREL BISULFATE 75 MG TABLET (FP) PO SCH (10:00)
[2021-08-04] MEDS ORDERED: TIOTROPIUM BROMIDE 2.5 MCG (SPIRIVA) RESPIMAT INHALER IH SCH (10:00)
[2021-08-04] MEDS ORDERED: PANTOPRAZOLE 20 MG TABLET PO SCH (10:00)
[2021-08-04] MEDS ORDERED: ISOSORBIDE MONONITRATE 60 MG TAB.SR.24H (FP) PO SCH (10:00)
[2021-08-04] MEDS: RANOLAZINE E.R. 500 MG TABLET (FP) PO SCH ×2 (10:23→21:52)
[2021-08-04] MEDS: CARVEDILOL 25 MG TABLET (FP) PO SCH ×2 (10:24→21:52)
[2021-08-04] MEDS ORDERED: DOXYCYCLINE HYCLATE 100 MG CAPSULE PO SCH (13:00)
[2021-08-04] MEDS ORDERED: predniSONE 10 MG TABLET (UD) PO SCH (13:00)
[2021-08-04] MEDS ORDERED: SODIUM CHLORIDE 250 ML IV PRN ×3 (14:52→16:26)
[2021-08-04] MEDS ORDERED: ALBUMIN HUMAN 25% 12.5 GM/50 ML VIAL IVPB SCH (16:30)
[2021-08-04] MEDS ORDERED: HEPARIN NA (PORCINE) 5,000 UNITS/ML 1ML VIAL IVPUSH ONE (16:44)
[2021-08-04] MEDS ORDERED: HEPARIN NA (PORCINE) 5,000 UNITS/ML 1ML VIAL IVPUSH PRN ×2 (16:44)
[2021-08-04] MEDS ORDERED: HEPARIN - 25,000 UNIT in SODIUM CHLORIDE 495 ML IV SCH (16:45)
[2021-08-04] MEDS: ALBUMIN HUMAN 25% 12.5 GM/50 ML VIAL IVPB SCH ×2 (17:02→17:04)
[2021-08-04] MEDS ORDERED: ASPIRIN COATED 81 MG TABLET.EC PO SCH (18:15)
[2021-08-04 20:59] VITALS: BP 100/47; PULSE 86; TEMP 97.8
[2021-08-04] MEDS: ATORVASTATIN CA 80 MG TABLET (FP) PO SCH (21:52)
[2021-08-04] MEDS: INSULIN (LEVEMIR) 100 UNITS/ML UNITS SQ SCH (22:13)
[2021-08-04 22:15] LABS: GLUCOSE,RANDOM 513 mg/dL (74-106)
== END 2021-08-05 00:05 | disposition short-term general hospital (02) | DRG 280 ==
LOC: JER 05:16 → JERBED 07:03 → J4W 22:58
PROVIDERS: ADMIT Internal Medicine; ATTEND Internal Medicine
PROC: 5A1D70Z Performance of Urinary Filtration, Intermittent, Less than 6 Hours Per Day (ICD-10-PCS; principal; 2021-08-03)
DX: I13.2 Hypertensive heart and chronic kidney disease with heart failure and with stage 5 chronic kidney disease, or end stage renal disease (principal); N18.6 End stage renal disease; I21.4 Non-ST elevation (NSTEMI) myocardial infarction; J44.1 Chronic obstructive pulmonary disease with (acute) exacerbation; J81.1 Chronic pulmonary edema; I42.0 Dilated cardiomyopathy; E11.22 Type 2 diabetes mellitus with diabetic chronic kidney disease; Z99.2 Dependence on renal dialysis; I25.10 Atherosclerotic heart disease of native coronary artery without angina pectoris; Z95.1 Presence of aortocoronary bypass graft; I50.9 Heart failure, unspecified; Z85.46 Personal history of malignant neoplasm of prostate; J44.9 Chronic obstructive pulmonary disease, unspecified; Z79.4 Long term (current) use of insulin; E11.65 Type 2 diabetes mellitus with hyperglycemia; R07.89 Other chest pain
CPT/HCPCS: 36415; 71045-TC-FY; 80048; 80053; 82010; 82550; 82803; 82947; 82962; 83735; 83880; 84100; 84484; 85027; 85610; 85730; 86803; 87340; 87804; 87807; 93005; 93010; 99285-25; C9803; J0131; J1644; P9047; U0003; U0005

== ENCOUNTER 2021-10-06 21:13 | Inpatient (IN) | payer OTHER ==
[2021-10-06 22:04] LABS: BASO % 0.9 % (0-2.0); EOS % 1.4 % (0-4.5); HEMATOCRIT 28.6 % (35.4-49); HEMOGLOBIN 9.8 GM/dL (11.7-16.9); LYMPH % 13.6 % (8-40); MCH 32.8 pg (25.7-33.7); MCHC 34.2 g/dl (32.0-35.9); MEAN CELL VOLUME 95.9 fl (80-96); MEAN PLT VOLUME 9.1 fl (7.5-11.1); MONO % 9.3 % (3.8-10.2); NEUT % 74.8 % (42.8-82.8); PLATELET COUNT 183 10^3/uL (134-434); RBC 2.98 M/mm3 (4.00-5.60); RDW 15.1 % (11.9-15.9); WHITE BLOOD COUNT 7.3 K/mm3 (4.0-10.0)
[2021-10-06 22:35] LABS: ACTIVATED PTT 32.5 SECONDS (25.2-36.5); INR 1.08 (0.83-1.09); PROTHROMBIN TIME (PATIENT) 12.4 SEC (9.7-13.0)
[2021-10-06 22:46] LABS: CHLORIDE 109 mmol/L (98-107); SODIUM 138 mmol/L (136-145)
[2021-10-06 22:49] LABS: CALCIUM 8.3 mg/dL (8.5-10.1)
[2021-10-06 22:50] LABS: ANION GAP 12 MMOL/L (8-16); CO2 17 mmol/L (21-32); GLUCOSE,RANDOM 366 mg/dL (74-106); MAGNESIUM 2.1 mg/dL (1.8-2.4)
[2021-10-06 22:52] LABS: CREATININE 5.5 mg/dL (0.55-1.3)
[2021-10-06 22:53] LABS: SGOT/AST 34 U/L (15-37); SGPT/ALT 47 U/L (13-61)
[2021-10-06 22:54] LABS: BILIRUBIN,TOTAL 0.4 mg/dL (0.2-1); TOT PROT 7.5 g/dl (6.4-8.2)
[2021-10-06 22:56] LABS: ALK PHOS 123 U/L (45-117)
[2021-10-06 23:05] LABS: BLOOD UREA NITROGEN 122.3 mg/dL (7-18)
[2021-10-06 23:19] LABS: N-TERMINAL BNP 74596.8 pg/ml (5-125)
[2021-10-07] MEDS ORDERED: FUROSEMIDE 40 MG/4 ML INJECTABLE VIAL IVPUSH ONE (00:34)
[2021-10-07 03:40] LABS: EPI CELLS 7 /uL (0-25.1); HYALINE CASTS 1 /uL (0-3.1); URINE APPEARANCE CLEAR; URINE BACTERIA 125 /uL (0-1359); URINE BILIRUBIN NEGATIVE (NEGATIVE); URINE COLOR YELLOW; URINE GLUCOSE (UA) 3+ (NEGATIVE); URINE KETONE NEGATIVE (NEGATIVE); URINE LEUK ESTERASE 1+ (NEGATIVE); URINE NITRITE NEGATIVE (NEGATIVE); URINE PROTEIN 2+ (NEGATIVE); URINE RBC 7 /uL (0-23.9); URINE UROBILINOGEN 0.2 mg/dL (0.2-1.0); URINE WBC 3 /uL (0-25.8)
[2021-10-07 06:41] LABS: BASO % 0.4 % (0-2.0); HEMATOCRIT 30.8 % (35.4-49); HEMOGLOBIN 10.1 GM/dL (11.7-16.9); LYMPH % 18.6 % (8-40); MCH 31.8 pg (25.7-33.7); MCHC 32.7 g/dl (32.0-35.9); MEAN CELL VOLUME 97.4 fl (80-96); MEAN PLT VOLUME 10.2 fl (7.5-11.1); MONO % 9.9 % (3.8-10.2); NEUT % 69.1 % (42.8-82.8); PLATELET COUNT 184 10^3/uL (134-434); RBC 3.17 M/mm3 (4.00-5.60); RDW 15.6 % (11.9-15.9); WHITE BLOOD COUNT 6.7 K/mm3 (4.0-10.0)
[2021-10-07 07:00] LABS: CHLORIDE 110 mmol/L (98-107); SODIUM 140 mmol/L (136-145)
[2021-10-07 07:03] LABS: CALCIUM 8.6 mg/dL (8.5-10.1)
[2021-10-07 07:04] LABS: ANION GAP 11 MMOL/L (8-16); CO2 20 mmol/L (21-32); GLUCOSE,RANDOM 267 mg/dL (74-106)
[2021-10-07 07:07] LABS: CREATININE 5.5 mg/dL (0.55-1.3); SGOT/AST 26 U/L (15-37); SGPT/ALT 43 U/L (13-61)
[2021-10-07 07:09] LABS: ALK PHOS 118 U/L (45-117); BILIRUBIN,TOTAL 0.5 mg/dL (0.2-1); TOT PROT 7.4 g/dl (6.4-8.2)
[2021-10-07 07:26] LABS: BLOOD UREA NITROGEN 121.8 mg/dL (7-18)
[2021-10-07] MEDS ORDERED: CARVEDILOL 3.125 MG TABLET (FP) ONE (08:23)
[2021-10-07] MEDS ORDERED: ISOSORBIDE MONONITRATE 60 MG TAB.SR.24H (FP) PO ONE (08:23)
[2021-10-07] MEDS ORDERED: PANTOPRAZOLE 20 MG TABLET PO ONE (08:23)
[2021-10-07] MEDS ORDERED: TAMSULOSIN HCL 0.4 MG CAP ONE (08:24)
[2021-10-07] MEDS ORDERED: CLOPIDOGREL BISULFATE 75 MG TABLET (FP) ONE (08:24)
[2021-10-07] MEDS: TAMSULOSIN HCL 0.4 MG CAP PO SCH (08:43)
[2021-10-07] MEDS: INSULIN SLIDING SCALE (NOVOLOG) 1 VIAL SQ SCH ×4 (09:22→22:53)
[2021-10-07] MEDS: CLOPIDOGREL BISULFATE 75 MG TABLET (FP) PO SCH (09:33)
[2021-10-07] MEDS: ISOSORBIDE MONONITRATE 60 MG TAB.SR.24H (FP) PO SCH (09:33)
[2021-10-07] MEDS: RANOLAZINE E.R. 500 MG TABLET (FP) PO SCH ×2 (09:33→22:52)
[2021-10-07] MEDS: SACUBITRIL/VALSARTAN 24 MG-26 MG TABLET PO SCH ×2 (09:33→23:58)
[2021-10-07] MEDS: CARVEDILOL 6.25 MG TABLET (FP) PO SCH ×2 (09:33→22:52)
[2021-10-07] MEDS: PANTOPRAZOLE 20 MG TABLET PO SCH (09:33)
[2021-10-07] MEDS ORDERED: metoPROLOL SUCCINATE 25 MG TAB.SR.24H (FP) PO SCH (10:00)
[2021-10-07] MEDS ORDERED: SODIUM CHLORIDE 250 ML IV PRN (10:04)
[2021-10-07] MEDS: BUDESONIDE/FORMETEROL FUMARATE 160/4.5 mcg INHALER IH SCH ×2 (16:27→23:57)
[2021-10-07] MEDS: TIOTROPIUM BROMIDE 2.5 MCG (SPIRIVA) RESPIMAT INHALER IH SCH (16:27)
[2021-10-07 18:50] VITALS: BMI 19.1
[2021-10-07] MEDS ORDERED: INSULIN (LEVEMIR) 100 UNITS/ML UNITS SQ SCH (22:00)
[2021-10-07] MEDS: ATORVASTATIN CA 80 MG TABLET (FP) PO SCH (22:52)
[2021-10-08] MEDS ORDERED: DEXTROSE 50%-WATER 25 GM/50 ML DISP.SYRIN IVPUSH ONE (05:43)
[2021-10-08] MEDS ORDERED: DEXTROSE 50%-WATER 25 GM/50 ML DISP.SYRIN ONE (05:54)
[2021-10-08] MEDS: INSULIN SLIDING SCALE (NOVOLOG) 1 VIAL SQ SCH ×4 (06:04→22:00)
[2021-10-08] MEDS: TAMSULOSIN HCL 0.4 MG CAP PO SCH (09:55)
[2021-10-08] MEDS: PANTOPRAZOLE 20 MG TABLET PO SCH (09:55)
[2021-10-08] MEDS ORDERED: SODIUM CHLORIDE 250 ML IV PRN (11:03)
[2021-10-08 12:57] LABS: HEMATOCRIT 28.3 % (35.4-49); HEMOGLOBIN 9.2 GM/dL (11.7-16.9); MCH 31.2 pg (25.7-33.7); MCHC 32.7 g/dl (32.0-35.9); MEAN CELL VOLUME 95.4 fl (80-96); PLATELET COUNT 192 10^3/uL (134-434); RBC 2.96 M/mm3 (4.00-5.60); RDW 15.2 % (11.9-15.9); WHITE BLOOD COUNT 6.5 K/mm3 (4.0-10.0)
[2021-10-08 13:20] LABS: ALBUMIN 2.5 g/dl (3.4-5.0); CALCIUM 8.1 mg/dL (8.5-10.1)
[2021-10-08 13:23] LABS: CREATININE 3.2 mg/dL (0.55-1.3); PHOSPHOROUS 3.8 mg/dL (2.5-4.9)
[2021-10-08 13:25] LABS: BILIRUBIN,TOTAL 0.6 mg/dL (0.2-1); TOT PROT 6.3 g/dl (6.4-8.2)
[2021-10-08 13:26] LABS: BLOOD UREA NITROGEN 46.9 mg/dL (7-18)
[2021-10-08] MEDS: CLOPIDOGREL BISULFATE 75 MG TABLET (FP) PO SCH (15:57)
[2021-10-08] MEDS: RANOLAZINE E.R. 500 MG TABLET (FP) PO SCH ×2 (15:57→21:58)
[2021-10-08] MEDS: ISOSORBIDE MONONITRATE 60 MG TAB.SR.24H (FP) PO SCH (15:57)
[2021-10-08] MEDS: SACUBITRIL/VALSARTAN 24 MG-26 MG TABLET PO SCH ×2 (15:58→21:59)
[2021-10-08] MEDS: CARVEDILOL 6.25 MG TABLET (FP) PO SCH ×2 (15:58→21:59)
[2021-10-08] MEDS: BUDESONIDE/FORMETEROL FUMARATE 160/4.5 mcg INHALER IH SCH ×2 (15:59→22:01)
[2021-10-08] MEDS: TIOTROPIUM BROMIDE 2.5 MCG (SPIRIVA) RESPIMAT INHALER IH SCH ×2 (16:02→18:05)
[2021-10-08] MEDS ORDERED: INSULIN (NOVOLOG) ASPART 100 UNITS/ML 10ML VIAL ONE (21:53)
[2021-10-08] MEDS: ATORVASTATIN CA 80 MG TABLET (FP) PO SCH (21:59)
[2021-10-09] MEDS: INSULIN SLIDING SCALE (NOVOLOG) 1 VIAL SQ SCH ×2 (06:00→12:00)
[2021-10-09 09:03] LABS: BASO % 0.7 % (0-2.0); EOS % 2.3 % (0-4.5); HEMATOCRIT 29.7 % (35.4-49); LYMPH % 19.3 % (8-40); MCH 32.5 pg (25.7-33.7); MCHC 33.6 g/dl (32.0-35.9); MEAN CELL VOLUME 96.5 fl (80-96); MEAN PLT VOLUME 9.7 fl (7.5-11.1); MONO % 11.6 % (3.8-10.2); NEUT % 66.1 % (42.8-82.8); PLATELET COUNT 196 10^3/uL (134-434); RBC 3.08 M/mm3 (4.00-5.60); RDW 15.4 % (11.9-15.9); WHITE BLOOD COUNT 7.4 K/mm3 (4.0-10.0)
[2021-10-09] MEDS: TAMSULOSIN HCL 0.4 MG CAP PO SCH (09:38)
[2021-10-09] MEDS: SACUBITRIL/VALSARTAN 24 MG-26 MG TABLET PO SCH (09:39)
[2021-10-09] MEDS: CARVEDILOL 6.25 MG TABLET (FP) PO SCH (09:39)
[2021-10-09] MEDS: PANTOPRAZOLE 20 MG TABLET PO SCH (09:40)
[2021-10-09] MEDS: CLOPIDOGREL BISULFATE 75 MG TABLET (FP) PO SCH (09:40)
[2021-10-09] MEDS: RANOLAZINE E.R. 500 MG TABLET (FP) PO SCH (09:40)
[2021-10-09] MEDS: ISOSORBIDE MONONITRATE 60 MG TAB.SR.24H (FP) PO SCH (09:40)
[2021-10-09] MEDS: TIOTROPIUM BROMIDE 2.5 MCG (SPIRIVA) RESPIMAT INHALER IH SCH (09:41)
[2021-10-09] MEDS: BUDESONIDE/FORMETEROL FUMARATE 160/4.5 mcg INHALER IH SCH (09:41)
[2021-10-09 10:08] LABS: CALCIUM 8.3 mg/dL (8.5-10.1)
[2021-10-09 10:09] LABS: ALBUMIN 2.7 g/dl (3.4-5.0); BLOOD UREA NITROGEN 25.8 mg/dL (7-18)
[2021-10-09 10:12] LABS: CREATININE 2.5 mg/dL (0.55-1.3); PHOSPHOROUS 2.9 mg/dL (2.5-4.9)
[2021-10-09 10:13] LABS: BILIRUBIN,TOTAL 0.5 mg/dL (0.2-1); TOT PROT 6.9 g/dl (6.4-8.2)
[2021-10-09 14:09] VITALS: BP 129/60; PULSE 79; TEMP 97.4
== END 2021-10-09 16:26 | disposition home or self-care (01) | DRG 291 ==
LOC: JER 21:13 → JERBED 23:06 → J7W 10-07 14:58
PROVIDERS: ADMIT Internal Medicine
PROC: 5A1D70Z Performance of Urinary Filtration, Intermittent, Less than 6 Hours Per Day (ICD-10-PCS; principal; 2021-10-07)
PROC: 5A1D70Z Performance of Urinary Filtration, Intermittent, Less than 6 Hours Per Day (ICD-10-PCS; 2021-10-08)
DX: I13.2 Hypertensive heart and chronic kidney disease with heart failure and with stage 5 chronic kidney disease, or end stage renal disease (principal); G93.41 Metabolic encephalopathy; N18.6 End stage renal disease; G81.94 Hemiplegia, unspecified affecting left nondominant side; I25.10 Atherosclerotic heart disease of native coronary artery without angina pectoris; I50.22 Chronic systolic (congestive) heart failure; E87.5 Hyperkalemia; J44.9 Chronic obstructive pulmonary disease, unspecified; R77.8 Other specified abnormalities of plasma proteins; I42.0 Dilated cardiomyopathy; E78.5 Hyperlipidemia, unspecified; E11.22 Type 2 diabetes mellitus with diabetic chronic kidney disease; Z99.2 Dependence on renal dialysis; I25.2 Old myocardial infarction; Z95.810 Presence of automatic (implantable) cardiac defibrillator; Z86.73 Personal history of transient ischemic attack (TIA), and cerebral infarction without residual deficits; Z85.46 Personal history of malignant neoplasm of prostate; Z95.1 Presence of aortocoronary bypass graft
CPT/HCPCS: 36415; 70450-TC; 71045-TC-FY; 80053; 81003; 82272; 82550; 82728; 82962; 83036; 83540; 83550; 83735; 83880; 84100; 84484; 85025; 85027; 85610; 85730; 86803; 87086; 87340; 93005; 93010; 97116-GP; 97161-GP; 99285-25; C9803; U0003; U0005

== ENCOUNTER 2021-10-29 14:00 | Inpatient (IN) | payer OTHER ==
[2021-10-29 15:36] LABS: EOS % 1.2 % (0-4.5); HEMOGLOBIN 10.1 GM/dL (11.7-16.9); MCH 31.3 pg (25.7-33.7); MCHC 32.7 g/dl (32.0-35.9); MEAN CELL VOLUME 95.8 fl (80-96); MEAN PLT VOLUME 9.6 fl (7.5-11.1); MONO % 5.7 % (3.8-10.2); NEUT % 84.1 % (42.8-82.8); PLATELET COUNT 249 10^3/uL (134-434); RBC 3.24 M/mm3 (4.00-5.60); RDW 14.5 % (11.9-15.9); WHITE BLOOD COUNT 6.8 K/mm3 (4.0-10.0)
[2021-10-29 15:52] LABS: CHLORIDE 99 mmol/L (98-107); SODIUM 132 mmol/L (136-145)
[2021-10-29 15:54] LABS: CALCIUM 8.9 mg/dL (8.5-10.1)
[2021-10-29 15:55] LABS: ALBUMIN 2.6 g/dl (3.4-5.0); ANION GAP 9 MMOL/L (8-16); BLOOD UREA NITROGEN 82.7 mg/dL (7-18); CO2 24 mmol/L (21-32)
[2021-10-29 15:58] LABS: CREATININE 4.3 mg/dL (0.55-1.3); SGOT/AST 14 U/L (15-37); SGPT/ALT 16 U/L (13-61)
[2021-10-29 15:59] LABS: TOT PROT 7.1 g/dl (6.4-8.2)
[2021-10-29 16:00] LABS: BILIRUBIN,TOTAL 0.4 mg/dL (0.2-1)
[2021-10-29 16:01] LABS: ALK PHOS 96 U/L (45-117)
[2021-10-29 16:37] LABS: GLUCOSE,RANDOM 464 mg/dL (74-106); N-TERMINAL BNP 72029.4 pg/ml (5-125)
[2021-10-29] MEDS ORDERED: ASPIRIN 81 MG CHEWABLE TABLETS PO ONE (16:45)
[2021-10-29] MEDS ORDERED: ASPIRIN 81 MG CHEWABLE TABLETS ONE (16:56)
[2021-10-29] MEDS ORDERED: HEPARIN NA (PORCINE) 5,000 UNITS/ML 1ML VIAL IVPUSH ONE (17:49)
[2021-10-29] MEDS ORDERED: ATORVASTATIN CA 80 MG TABLET (FP) PO ONE (17:56)
[2021-10-29 18:07] LABS: INR 1.08 (0.83-1.09); PROTHROMBIN TIME (PATIENT) 12.4 SEC (9.7-13.0)
[2021-10-29] MEDS ORDERED: HEPARIN NA (PORCINE) 5,000 UNITS/ML 1ML VIAL ONE (18:07)
[2021-10-29] MEDS ORDERED: ATORVASTATIN CA 80 MG TABLET (FP) ONE (18:08)
[2021-10-29 18:10] LABS: ACTIVATED PTT 32.5 SECONDS (25.2-36.5)
[2021-10-29] MEDS ORDERED: CARVEDILOL 25 MG TABLET (FP) PO ONE (18:10)
[2021-10-29] MEDS: HEPARIN INFUSION - 25,000 UNITS/500 ML INFUS.BAG IVPB SCH (18:15)
[2021-10-29] MEDS ORDERED: CARVEDILOL 12.5 MG TABLET (FP) ONE (18:16)
[2021-10-29] MEDS ORDERED: INSULIN (NOVOLOG) ASPART 100 UNITS/ML 10ML VIAL SQ ONE (18:23)
[2021-10-29 19:43] LABS: HEMATOCRIT 29.6 % (35.4-49); HEMOGLOBIN 10.1 GM/dL (11.7-16.9); MCH 32.6 pg (25.7-33.7); MCHC 34.3 g/dl (32.0-35.9); MEAN CELL VOLUME 95.1 fl (80-96); MEAN PLT VOLUME 8.9 fl (7.5-11.1); PLATELET COUNT 233 10^3/uL (134-434); RBC 3.11 M/mm3 (4.00-5.60); RDW 14.7 % (11.9-15.9); WHITE BLOOD COUNT 6.1 K/mm3 (4.0-10.0)
[2021-10-29 20:05] LABS: CALCIUM 9.1 mg/dL (8.5-10.1)
[2021-10-29 20:08] LABS: BLOOD UREA NITROGEN 82.4 mg/dL (7-18)
[2021-10-29 20:09] LABS: CREATININE 4.4 mg/dL (0.55-1.3)
[2021-10-29] MEDS ORDERED: NITROGLYCERIN 2% OINTMENT - 1GM PACKET TD ONE ×2 (22:29→23:09)
[2021-10-29] MEDS ORDERED: CLOPIDOGREL BISULFATE 75 MG TABLET (FP) ONE (23:10)
[2021-10-29] MEDS: SACUBITRIL/VALSARTAN 24 MG-26 MG TABLET PO SCH (23:51)
[2021-10-29] MEDS: CLOPIDOGREL BISULFATE 75 MG TABLET (FP) PO SCH (23:51)
[2021-10-30] MEDS: INSULIN SLIDING SCALE (NOVOLOG) 1 VIAL SQ SCH ×4 (06:39→21:23)
[2021-10-30 08:02] LABS: BASO % 1.1 % (0-2.0); EOS % 8.8 % (0-4.5); HEMATOCRIT 27.1 % (35.4-49); LYMPH % 14.8 % (8-40); MCH 31.4 pg (25.7-33.7); MCHC 33.1 g/dl (32.0-35.9); MEAN PLT VOLUME 9.4 fl (7.5-11.1); MONO % 5.7 % (3.8-10.2); NEUT % 69.6 % (42.8-82.8); PLATELET COUNT 221 10^3/uL (134-434); RBC 2.85 M/mm3 (4.00-5.60); RDW 14.3 % (11.9-15.9); WHITE BLOOD COUNT 5.7 K/mm3 (4.0-10.0)
[2021-10-30 09:07] LABS: ALBUMIN 2.2 g/dl (3.4-5.0); BILIRUBIN,TOTAL 0.4 mg/dL (0.2-1); CALCIUM 8.4 mg/dL (8.5-10.1); CREATININE 4.4 mg/dL (0.55-1.3); MAGNESIUM 2.3 mg/dL (1.8-2.4); PHOSPHOROUS 4.7 mg/dL (2.5-4.9)
[2021-10-30] MEDS ORDERED: SODIUM CHLORIDE 250 ML IV PRN (10:00)
[2021-10-30] MEDS ORDERED: HEPARIN NA (PORCINE) 5,000 UNITS/ML 1ML VIAL IVPUSH ONE ×3 (10:00→19:24)
[2021-10-30] MEDS: SACUBITRIL/VALSARTAN 24 MG-26 MG TABLET PO SCH ×2 (10:52→21:20)
[2021-10-30] MEDS: CLOPIDOGREL BISULFATE 75 MG TABLET (FP) PO SCH (10:52)
[2021-10-30] MEDS: ASPIRIN COATED 81 MG TABLET.EC PO SCH (10:54)
[2021-10-30] MEDS: CARVEDILOL 3.125 MG TABLET (FP) PO SCH ×2 (10:54→21:20)
[2021-10-30] MEDS ORDERED: ACETAMINOPHEN 325 MG TABLET (FP) PO PRN (11:43)
[2021-10-30 13:07] LABS: SARS-CoV-2 NAA Not Detected (Not Detected)
[2021-10-30] MEDS: HEPARIN INFUSION - 25,000 UNITS/500 ML INFUS.BAG IVPB SCH (18:02)
[2021-10-30] MEDS: ATORVASTATIN CA 40 MG TABLET (FP) PO SCH (21:19)
[2021-10-31] MEDS ORDERED: HEPARIN NA (PORCINE) 5,000 UNITS/ML 1ML VIAL IVPUSH PRN ×2 (03:44)
[2021-10-31] MEDS: INSULIN SLIDING SCALE (NOVOLOG) 1 VIAL SQ SCH ×4 (06:34→21:01)
[2021-10-31 08:30] LABS: BASO % 0.7 % (0-2.0); EOS % 4.3 % (0-4.5); HEMATOCRIT 32.3 % (35.4-49); HEMOGLOBIN 10.4 GM/dL (11.7-16.9); LYMPH % 16.4 % (8-40); MCHC 32.2 g/dl (32.0-35.9); MEAN CELL VOLUME 96.1 fl (80-96); MEAN PLT VOLUME 9.4 fl (7.5-11.1); MONO % 7.9 % (3.8-10.2); NEUT % 70.7 % (42.8-82.8); PLATELET COUNT 271 10^3/uL (134-434); RBC 3.36 M/mm3 (4.00-5.60); RDW 14.8 % (11.9-15.9); WHITE BLOOD COUNT 6.7 K/mm3 (4.0-10.0)
[2021-10-31 09:22] LABS: CREATININE 3.3 mg/dL (0.55-1.3)
[2021-10-31 09:24] LABS: BILIRUBIN,TOTAL 0.8 mg/dL (0.2-1); TOT PROT 7.4 g/dl (6.4-8.2)
[2021-10-31] MEDS: SACUBITRIL/VALSARTAN 24 MG-26 MG TABLET PO SCH ×2 (09:35→21:01)
[2021-10-31] MEDS: CLOPIDOGREL BISULFATE 75 MG TABLET (FP) PO SCH (09:35)
[2021-10-31] MEDS: CARVEDILOL 3.125 MG TABLET (FP) PO SCH ×2 (09:35→21:01)
[2021-10-31] MEDS: ASPIRIN COATED 81 MG TABLET.EC PO SCH (09:35)
[2021-10-31] MEDS ORDERED: SODIUM CHLORIDE 250 ML IV PRN (09:55)
[2021-10-31 10:16] LABS: ALBUMIN 2.9 g/dl (3.4-5.0); BLOOD UREA NITROGEN 43.3 mg/dL (7-18)
[2021-10-31 12:28] VITALS: BMI 19.2
[2021-10-31] MEDS: ATORVASTATIN CA 40 MG TABLET (FP) PO SCH (21:01)
[2021-11-01] MEDS: INSULIN SLIDING SCALE (NOVOLOG) 1 VIAL SQ SCH (06:04)
[2021-11-01 07:30] VITALS: TEMP 98
[2021-11-01 08:52] LABS: BASO % 1.1 % (0-2.0); EOS % 4.3 % (0-4.5); HEMATOCRIT 28.5 % (35.4-49); HEMOGLOBIN 9.4 GM/dL (11.7-16.9); LYMPH % 13.3 % (8-40); MCH 31.5 pg (25.7-33.7); MCHC 33.1 g/dl (32.0-35.9); MEAN CELL VOLUME 95.1 fl (80-96); MEAN PLT VOLUME 9.3 fl (7.5-11.1); MONO % 7.1 % (3.8-10.2); NEUT % 74.2 % (42.8-82.8); PLATELET COUNT 254 10^3/uL (134-434); RDW 14.4 % (11.9-15.9); WHITE BLOOD COUNT 7.7 K/mm3 (4.0-10.0)
[2021-11-01 09:17] LABS: CALCIUM 8.7 mg/dL (8.5-10.1)
[2021-11-01 09:21] LABS: CREATININE 4.6 mg/dL (0.55-1.3)
[2021-11-01 09:31] LABS: BLOOD UREA NITROGEN 72.4 mg/dL (7-18)
[2021-11-01 10:31] VITALS: BP 121/83; PULSE 70
[2021-11-01] MEDS: ASPIRIN COATED 81 MG TABLET.EC PO SCH (11:41)
[2021-11-01] MEDS: SACUBITRIL/VALSARTAN 24 MG-26 MG TABLET PO SCH (11:41)
[2021-11-01] MEDS: CARVEDILOL 3.125 MG TABLET (FP) PO SCH (11:41)
[2021-11-01] MEDS: CLOPIDOGREL BISULFATE 75 MG TABLET (FP) PO SCH (11:41)
== END 2021-11-01 12:00 | DRG 291 ==
LOC: JER 14:00 → JERBED 19:00 → J4S 10-30 03:06
PROVIDERS: ADMIT Hospitalist
PROC: 5A1D70Z Performance of Urinary Filtration, Intermittent, Less than 6 Hours Per Day (ICD-10-PCS; principal; 2021-11-01)
DX: I13.2 Hypertensive heart and chronic kidney disease with heart failure and with stage 5 chronic kidney disease, or end stage renal disease (principal); N18.6 End stage renal disease; I24.8 Other forms of acute ischemic heart disease; I50.22 Chronic systolic (congestive) heart failure; D63.1 Anemia in chronic kidney disease; E11.65 Type 2 diabetes mellitus with hyperglycemia; I25.10 Atherosclerotic heart disease of native coronary artery without angina pectoris; Z95.1 Presence of aortocoronary bypass graft; E78.5 Hyperlipidemia, unspecified; Z99.2 Dependence on renal dialysis; I42.0 Dilated cardiomyopathy
CPT/HCPCS: 36415; 71045-TC-FY; 80048; 80053; 80061; 82550; 82962; 83735; 83880; 84100; 84443; 84484; 85025; 85027; 85610; 85730; 87340; 93005; 93010; 97116-GP; 97161-GP; 99285-25; C9803; J1644; U0003; U0005